=== PATIENT | male | born 1990 | race Caucasian/White ===

== ENCOUNTER 2017-02-01 12:32 | Emergency (ER) | payer SELFPAY ==
[~2017-02-01] VITALS: Ht 170.2 cm; Wt 57.7 kg
[2017-02-01 13:56] VITALS: BP 130/69
== END 2017-02-01 13:56 | disposition home or self-care (01) ==
LOC: ED 12:32
DX: S67.01XA Crushing injury of right thumb, initial encounter (principal); X58.XXXA Exposure to other specified factors, initial encounter; Y93.89 Activity, other specified; Y99.8 Other external cause status; Y92.89 Other specified places as the place of occurrence of the external cause

== ENCOUNTER 2018-03-13 20:39 | Emergency (ER) | payer SELFPAY ==
[~2018-03-13] VITALS: Ht 170.2 cm; Wt 60.3 kg
[2018-03-13 20:43] VITALS: Ht 170.2 cm; Wt 60.3 kg
[2018-03-13 21:48] VITALS: BP 131/74
== END 2018-03-13 21:48 | disposition home or self-care (01) ==
LOC: ED 20:39
DX: R51 Headache (principal); R20.2 Paresthesia of skin
CPT/HCPCS: J1885

== ENCOUNTER 2020-07-07 18:50 | Emergency (ER) | payer MEDICAID ==
[~2020-07-07] VITALS: Ht 167.6 cm; Wt 61.7 kg
[2020-07-07 18:59] VITALS: Ht 167.6 cm; Wt 61.7 kg
[2020-07-07 20:08] VITALS: BP 147/93
== END 2020-07-07 20:08 | disposition home or self-care (01) ==
LOC: ED 18:50
DX: R07.89 Other chest pain (principal)
CPT/HCPCS: J1885; Q0092